=== PATIENT | female | born 1970 | race Caucasian/White ===

== ENCOUNTER 2017-06-20 10:39 | Observation (INO) | payer OTHER ==
[2017-06-20] MEDS ORDERED: Sodium Chloride 0.9% 1,000 ML IV ONE (11:15)
[2017-06-20 11:57] LABS: BASO % 1.3 % (0.0-2.0); LYMPH # 0.8 K/uL (1.0-4.3); LYMPH % 20.8 % (20.0-40.0); MEAN CELL VOLUME 49.2 fL (81.0-99.0); MEAN CORPUSCULAR HGB CONC 24.4 g/dL (33.0-37.0); MEAN PLATELET VOLUME 8.7 fL (7.2-11.7); MONO # 0.4 K/uL (0.0-0.8); NEUT # 2.6 K/uL (1.8-7.0); NEUT % 66.9 % (50.0-75.0); NRBC % 0.9 % (0.0-2.0); RBC 3.15 Mil/uL (3.80-5.20); RED CELL DISTRIBUTION WIDTH 22.2 % (11.5-14.5); WHITE BLOOD COUNT 3.9 K/uL (4.8-10.8)
--- NOTE | 2017-06-20 11:57 | C.PDOC ---
History Of Present Illness 46 year old female presents to the ED for evaluation after having abnormal lab results. Patient states she underwent a blood test at her PMD's office yesterday. She received the results today and was found to have low hemoglobin levels. Patient was advised by her PMD to present to the ED for further evaluation. Patient notes she usually experiences heavy menstrual periods, last menses is still current almost 7 days. Patient reports some generalized weakness and denies history of blood transfusions as well as any pain at this time. PMD: Dr. Remi Funez Time Seen by Provider: 06/20/17 11:01 Chief Complaint (Nursing): Abnormal Labs History Per: Patient History/Exam Limitations: no limitations Onset/Duration Of Symptoms: Days Current Symptoms Are (Timing): Still Present Additional History Per: Patient Past Medical History Reviewed: Historical Data, Nursing Documentation, Vital Signs Vital Signs: Last Vital Signs Temp 97.8 F 06/20/17 15:35 Pulse 108 H 06/20/17 15:35 Resp 18 06/20/17 15:35 BP 128/66 06/20/17 15:35 Pulse Ox 100 06/20/17 15:35 - Medical History PMH: No Chronic Diseases Surgical History: No Surg Hx Family History: States: Unknown Family Hx - Social History Hx Alcohol Use: No Hx Substance Use: No Review Of Systems Constitutional: Positive for: Weakness, Other (low hemoglobin levels ) Physical Exam - Physical Exam Appears: Non-toxic, No Acute Distress Skin: Warm, Dry, Pale Head: Atraumatic, Normacephalic Eye(s): bilateral: Normal Inspection Oral Mucosa: Moist Neck: Supple Chest: Symmetrical, No Deformity, No Tenderness Cardiovascular: Rhythm Regular, No Murmur Respiratory: Normal Breath Sounds, No Rales, No Rhonchi, No Wheezing Extremity: Normal ROM, Capillary Refill (less than 2 seconds ) Neurological/Psych: Oriented x3, Normal Speech, Normal Cognition ED Course And Treatment - Laboratory Results Result Diagrams: 06/20/17 11:49 06/20/17 11:49 O2 Sat by Pulse Oximetry: 100 (on RA) Pulse Ox Interpretation: Normal Medical Decision Making Medical Decision Making: Impression: 46 year old female for evaluation of low hemoglobin levels Plan: * bloodwork * urinalysis * ultrasound * IV Fluids * reassess and disposition Progress: Bloodwork and urinalysis ordered and reviewed. IV Fluids administered. 1240 Spoke with Jewel Owen for admission. Recommends ICU consult [address] Andrews (Data Coordinator clinical education assistant). Patient will receive 5 units for transfusion and will be admitted to telemetry for observation 1245 and 1340: Paged Dr. Perry (COFFEE SAMPLER clinical education assistant). Pending call back. [address] Perry, who states she will come down to see the patient in 10 minutes. Advised to order ultrasound. Patient is admitted and she is aware to follow up with results as consult Disposition - Disposition Disposition: HOSPITALIZED Disposition Time: 12:20 Condition: FAIR - POA Present On Arrival: None - Clinical Impression Clinical Impression: Severe anemia - PA / TECHNICAL SUPPORT ASSOCIATE / Resident Statement MD/DO has reviewed & agrees with the documentation as recorded. - Scribe Statement The provider has reviewed the documentation as recorded by the Scribe (Ana Owen) All medical record entries made by the Scribe were at my direction and personally dictated by me. I have reviewed the chart and agree that the record accurately reflects my personal performance of the history, physical exam, medical decision making, and the department course for this patient. I have also personally directed, reviewed, and agree with the discharge instructions and disposition. Decision To Admit - Pt Status Changed To: Hospital Disposition Of: Observation - . Bed Request Type: Telemetry Admitting Physician: Artem Owen Patient Diagnosis: Severe anemia
[2017-06-20 11:59] LABS: HCG,QUALITATIVE URINE NEGATIVE (NEGATIVE)
[2017-06-20 12:04] LABS: HEMOGLOBIN 3.8 g/dL (11.0-16.0); INR 1.3; PROTHROMBIN TIME 14.5 SECONDS (9.7-12.2)
[2017-06-20 12:09] LABS: SQUAMOUS EPITHIAL 1 /hpf (0-5); URINE BACTERIA RARE (<OCC); URINE BILIRUBIN NEGATIVE (NEGATIVE); URINE BLOOD 2+ (NEGATIVE); URINE CLARITY Clear (Clear); URINE GLUCOSE (UA) NORMAL (Normal); URINE LEUKOCYTE ESTERASE NEG Leu/uL (Negative); URINE PROTEIN NEGATIVE (NEGATIVE); URINE UROBILINOGEN NORMAL mg/dL (0.2-1.0)
[2017-06-20 12:12] LABS: URINE COLOR Straw (YELLOW)
[2017-06-20 12:30] LABS: ALB/GLOB RATIO 1.3 (1.0-2.1); ALBUMIN 3.7 g/dL (3.5-5.0); ALT/SGPT 22 U/L (9-52); AST/SGOT 17 U/L (14-36); BLOOD UREA NITROGEN 13 mg/dL (7-17); CALCIUM 9.3 mg/dl (8.6-10.4); GFR AFRICAN-AMERICAN > 60; GFR NON-AFRICAN AMERICAN > 60
[2017-06-20 12:49] LABS: IRON 10 ug/dL (37-170); TOTAL IRON BINDING CAPACITY 500 ug/dL (250-450)
[2017-06-20 12:50] LABS: % IRON SATURATION 2 (20-55)
--- NOTE | 2017-06-20 15:44 | CP.PCM.HP ---
Past Patient History - Past Social History Smoking Status: Never Smoked - PSYCHIATRIC Hx Substance Use: No - SURGICAL HISTORY Hx Surgeries: No Hx Vascular Surgery: Yes - ANESTHESIA Hx Anesthesia: No Meds Allergies/Adverse Reactions: Allergies Allergy/AdvReac Type Severity Reaction Status Date / Time No Known Allergies Allergy Unverified 06/20/17 10:49 Physical Exam - Constitutional Appears: Well - Head Exam Head Exam: ATRAUMATIC, NORMAL INSPECTION, NORMOCEPHALIC - Eye Exam Eye Exam: EOMI, Normal appearance, PERRL Pupil Exam: NORMAL ACCOMODATION, PERRL - ENT Exam ENT Exam: Mucous Membranes Moist, Normal Exam - Neck Exam Neck exam: Positive for: Normal Inspection - Respiratory Exam Respiratory Exam: Decreased Breath Sounds - Cardiovascular Exam Cardiovascular Exam: Tachycardia, +S1, +S2 - GI/Abdominal Exam GI & Abdominal Exam: Diminished Bowel Sounds, Soft - Rectal Exam Rectal Exam: Deferred Results - Vital Signs Recent Vital Signs: Last Vital Signs Temp 97.8 F 06/20/17 15:35 Pulse 108 H 06/20/17 15:35 Resp 18 06/20/17 15:35 BP 128/66 06/20/17 15:35 Pulse Ox 100 06/20/17 15:35 - Labs Result Diagrams: 06/20/17 11:49 06/20/17 11:49 Labs: Laboratory Results - last 24 hr 06/20/17 06/20/17 06/20/17 11:49 11:49 11:49 WBC 3.9 L RBC 3.15 L Hgb 3.8 L* Hct 15.5 L MCV 49.2 L MCH 12.0 L MCHC 24.4 L RDW 22.2 H Plt Count 166 MPV 8.7 Neut % (Auto) 66.9 Lymph % (Auto) 20.8 [place] % (Auto) 10.0 Eos % (Auto) 1.0 Baso % (Auto) 1.3 Neut # (Auto) 2.6 Lymph # (Auto) 0.8 L [place] # (Auto) 0.4 Eos # (Auto) 0.0 Baso # (Auto) 0.0 Differential Comment PT 14.5 H INR 1.3 APTT 29 Sodium Potassium Chloride Carbon Dioxide Anion Gap BUN Creatinine Est GFR ( Amer) Est GFR (Non-Af Amer) Random Glucose Calcium Iron TIBC % Saturation Total Bilirubin AST ALT Alkaline Phosphatase Total Protein Albumin Globulin Albumin/Globulin Ratio Urine Color Straw Urine Clarity Clear Urine pH 7.0 Ur Specific [place] 1.003 Urine Protein Negative Urine Glucose (UA) Normal Urine Ketones Negative Urine Blood 2+ H Urine Nitrate Negative Urine Bilirubin Negative Urine Urobilinogen Normal Ur Leukocyte Esterase Neg Urine WBC (Auto) 1 Urine RBC (Auto) 9 H Ur Squamous Epith Cells 1 Urine Bacteria Rare Urine HCG, Qual Negative Blood Type Antibody Screen 06/20/17 06/20/17 06/20/17 11:49 11:49 11:49 WBC RBC Hgb Hct MCV MCH MCHC RDW Plt Count MPV Neut % (Auto) Lymph % (Auto) [place] % (Auto) Eos % (Auto) Baso % (Auto) Neut # (Auto) Lymph # (Auto) [place] # (Auto) Eos # (Auto) Baso # (Auto) Differential Comment PT INR APTT Sodium 141 Potassium 3.7 Chloride 106 Carbon Dioxide 22 Anion Gap 16 BUN 13 Creatinine 0.5 L Est GFR ( Amer) > 60 Est GFR (Non-Af Amer) > 60 Random Glucose 112 H Calcium 9.3 Iron 10 L TIBC 500 H % Saturation 2 L Total Bilirubin 0.9 AST 17 ALT 22 Alkaline Phosphatase 55 Total Protein 6.6 Albumin 3.7 Globulin 2.9 Albumin/Globulin Ratio 1.3 Urine Color Urine Clarity Urine pH Ur Specific [place] Urine Protein Urine Glucose (UA) Urine Ketones Urine Blood Urine Nitrate Urine Bilirubin Urine Urobilinogen Ur Leukocyte Esterase Urine WBC (Auto) Urine RBC (Auto) Ur Squamous Epith Cells Urine Bacteria Urine HCG, Qual Blood Type O POSITIVE Antibody Screen Negative
--- NOTE | 2017-06-20 16:55 | CP.PCM.CON ---
History of Present Illness - History of Present Illness History of Present Illness: Pt is a 46yo LMP 06/13/17 who was sent to ED for further evaluation by pcp due to severe anemia. Pt c/o heavy menses x4mos. +7day duration with increased severity of flow on days 3-5. She denies passage of large clots or dysmennorhea. She states on days of heavy bleeding it is a steady flow. 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 ObHx: CD x2; EAB 1s trim x2 Review of Systems - Constitutional Constitutional: Malaise - Cardiovascular Cardiovascular: absent: Chest Pain, Chest Pain with Activity, Dyspnea - Respiratory Respiratory: Dyspnea on Exertion - Gastrointestinal Gastrointestinal: absent: Abdominal Pain, Cramping - Reproductive: Female Reproductive:Female: Abnormal Vaginal Bleeding. absent: Cycle Variable, Dysmenorrhea, Vaginal Discharge - Menstruation Menstruation: Heavy Menses Past Patient History - Past Medical History & Family History Past Medical History?: No - Past Social History Smoking Status: Never Smoked Alcohol: None Drugs: Denies - CARDIAC Hx Cardiac Disorders: No - PULMONARY Hx Respiratory Disorders: No - NEUROLOGICAL Hx Neurological Disorder: No - HEENT Hx HEENT Problems: No - RENAL Hx Chronic Kidney Disease: No - ENDOCRINE/METABOLIC Hx Endocrine Disorders: No - HEMATOLOGICAL/ONCOLOGICAL Hx Blood Disorders: No - GASTROINTESTINAL Hx Gastrointestinal Disorders: No - GENITOURINARY/GYNECOLOGICAL Hx Genitourinary Disorders: No - PSYCHIATRIC Hx Psychophysiologic Disorder: No Hx Substance Use: No - SURGICAL HISTORY Hx Surgeries: Yes (see ob hx) Hx Vascular Surgery: Yes - ANESTHESIA Hx Anesthesia: No Meds Allergies/Adverse Reactions: Allergies Allergy/AdvReac Type Severity Reaction Status Date / Time No Known Allergies Allergy Unverified 06/20/17 10:49 - Medications Medications: Current Medications Ferric Sodium Gluconate Complex (Ferrlecit) 125 mg IVPB ONCE ONE Stop: 06/20/17 17:31 Last Admin: 06/20/17 16:53 Dose: 125 mg Physical Exam - Constitutional Appears: Well, No Acute Distress - Head Exam Head Exam: ATRAUMATIC, NORMOCEPHALIC - Respiratory Exam Respiratory Exam: NORMAL BREATHING PATTERN - Cardiovascular Exam Cardiovascular Exam: REGULAR RHYTHM - GI/Abdominal Exam GI & Abdominal Exam: Normal Bowel Sounds, Soft. absent: Distended, Firm, Guarding, Organomegaly, Rebound, Rigid, Tenderness - Rectal Exam Rectal Exam: Deferred - Exam External exam: NORMAL EXTERNAL EXAM Speculum exam: Vaginal Bleeding (no active bleeding per cerv os; +hemolyzed blood in vault, small amoung; no cerv or vaginal lesions). absent: Cervical Discharge, Laceration, Vaginal Discharge Bimanual exam: Uterine Enlargement (15wk size uterus). absent: Adenexal Mass, Cervical Motion Tendernes, Uterine Tenderness - Extremities Exam Extremities exam: Positive for: normal inspection. Negative for: pedal edema - Neurological Exam Neurological exam: Oriented x3 - Psychiatric Exam Psychiatric exam: Normal Affect - Skin Skin Exam: Pallor Results - Vital Signs Recent Vital Signs: Last Vital Signs Temp 97.8 F 06/20/17 15:35 Pulse 108 H 06/20/17 15:35 Resp 18 06/20/17 15:35 BP 128/66 06/20/17 15:35 Pulse Ox 100 06/20/17 16:27 - Labs Result Diagrams: 06/20/17 11:49 06/20/17 11:49 Labs: Laboratory Results - last 24 hr 06/20/17 06/20/17 06/20/17 11:49 11:49 11:49 WBC 3.9 L RBC 3.15 L Hgb 3.8 L* Hct 15.5 L MCV 49.2 L MCH 12.0 L MCHC 24.4 L RDW 22.2 H Plt Count 166 MPV 8.7 Neut % (Auto) 66.9 Lymph % (Auto) 20.8 [place] % (Auto) 10.0 Eos % (Auto) 1.0 Baso % (Auto) 1.3 Neut # (Auto) 2.6 Lymph # (Auto) 0.8 L [place] # (Auto) 0.4 Eos # (Auto) 0.0 Baso # (Auto) 0.0 Differential Comment Smear Path Review PT 14.5 H INR 1.3 APTT 29 Sodium Potassium Chloride Carbon Dioxide Anion Gap BUN Creatinine Est GFR ( Amer) Est GFR (Non-Af Amer) Random Glucose Calcium Iron TIBC % Saturation Total Bilirubin AST ALT Alkaline Phosphatase Total Protein Albumin Globulin Albumin/Globulin Ratio Urine Color Straw Urine Clarity Clear Urine pH 7.0 Ur Specific [place] 1.003 Urine Protein Negative Urine Glucose (UA) Normal Urine Ketones Negative Urine Blood 2+ H Urine Nitrate Negative Urine Bilirubin Negative Urine Urobilinogen Normal Ur Leukocyte Esterase Neg Urine WBC (Auto) 1 Urine RBC (Auto) 9 H Ur Squamous Epith Cells 1 Urine Bacteria Rare Urine HCG, Qual Negative Blood Type Antibody Screen 06/20/17 06/20/17 06/20/17 11:49 11:49 11:49 WBC RBC Hgb Hct MCV MCH MCHC RDW Plt Count MPV Neut % (Auto) Lymph % (Auto) [place] % (Auto) Eos % (Auto) Baso % (Auto) Neut # (Auto) Lymph # (Auto) [place] # (Auto) Eos # (Auto) Baso # (Auto) Differential Comment Smear Path Review PT INR APTT Sodium 141 Potassium 3.7 Chloride 106 Carbon Dioxide 22 Anion Gap 16 BUN 13 Creatinine 0.5 L Est GFR ( Amer) > 60 Est GFR (Non-Af Amer) > 60 Random Glucose 112 H Calcium 9.3 Iron 10 L TIBC 500 H % Saturation 2 L Total Bilirubin 0.9 AST 17 ALT 22 Alkaline Phosphatase 55 Total Protein 6.6 Albumin 3.7 Globulin 2.9 Albumin/Globulin Ratio 1.3 Urine Color Urine Clarity Urine pH Ur Specific [place] Urine Protein Urine Glucose (UA) Urine Ketones Urine Blood Urine Nitrate Urine Bilirubin Urine Urobilinogen Ur Leukocyte Esterase Urine WBC (Auto) Urine RBC (Auto) Ur Squamous Epith Cells Urine Bacteria Urine HCG, Qual Blood Type O POSITIVE Antibody Screen Negative - Imaging and Cardiology pelvic us Status: Report reviewed by me (US: uterus 15.9x 8.7x9.7; fundal fibroid w/ central necrosis [id number]; 2nd fibroid 50x55x 33mm. ) Assessment & Plan - Assessment and Plan (Free Text) Assessment: Impression: Menorrhagia Leomyoma Secondary Anemia Plan: P Pt admitted to medicine service Blood transfusion Recommend heme consult Consider provera
--- NOTE | 2017-06-20 17:01 | US ---
HISTORY: heavy vaginal bleeding COMPARISON: None available. TECHNIQUE: Transabdominal and transvaginal FINDINGS: UTERUS: Measures 15.9 x 8.7 x 9.7 cm. There to large discrete uterine fibroids identified. There is a fundal fibroid measuring 5.1 x 5.6 x 6.9 cm. There is some central necrosis within this fibroid. There is a 2nd fibroid in the mid to upper uterus measuring 5.0 x 5.0 x 3.3 cm. ENDOMETRIUM: Poorly visualized due to effacement by large fibroids. CERVIX: No cervical abnormality identified. RIGHT OVARY: Measures 4.6 x 2.7 x 3.9 cm. No solid mass. Normal flow. LEFT OVARY: Measures 5.2 x 2.8 x 4.2 cm. No solid mass. Normal flow. Minimally complicated cyst, 1.9 x 2.8 x 3.1 cm. FREE FLUID: Small amount of free fluid in both adnexae. OTHER FINDINGS: None. IMPRESSION: Two large uterine fibroids. Endometrium poorly visualized. No additional abnormality.
[2017-06-20] MEDS ORDERED: Ferric Sodium Gluconat Complex 62.5 mg/5 ml Vial IVPB ONE (17:30)
[2017-06-20 19:32] LABS: BASO # 0.1 K/uL (0.0-0.2); BASO % 1.1 % (0.0-2.0); EOS # 0.1 K/uL (0.0-0.7); EOS % 2.1 % (0.0-4.0); LYMPH # 1.3 K/uL (1.0-4.3); LYMPH % 29.7 % (20.0-40.0); MEAN CELL VOLUME 55.2 fL (81.0-99.0); MEAN CORPUSCULAR HEMOGLOBIN 15.1 pg (27.0-31.0); MEAN CORPUSCULAR HGB CONC 27.4 g/dL (33.0-37.0); MEAN PLATELET VOLUME 9.3 fL (7.2-11.7); MONO # 0.4 K/uL (0.0-0.8); MONO % 9.2 % (0.0-10.0); NEUT # 2.6 K/uL (1.8-7.0); NEUT % 57.9 % (50.0-75.0); NRBC % 0.7 % (0.0-2.0); RBC 3.32 Mil/uL (3.80-5.20); RED CELL DISTRIBUTION WIDTH 31.5 % (11.5-14.5); WHITE BLOOD COUNT 4.4 K/uL (4.8-10.8)
[2017-06-20 19:47] LABS: ALB/GLOB RATIO 1.2 (1.0-2.1); ALBUMIN 3.1 g/dL (3.5-5.0); ALT/SGPT 22 U/L (9-52); AST/SGOT 12 U/L (14-36); BLOOD UREA NITROGEN 8 mg/dL (7-17); CALCIUM 8.8 mg/dl (8.6-10.4); GFR AFRICAN-AMERICAN > 60; GFR NON-AFRICAN AMERICAN > 60
[2017-06-21] MEDS: Ferric Sodium Gluconat Complex 62.5 mg/5 ml Vial IVPB SCH (10:34)
--- NOTE | 2017-06-21 19:37 | CP.PCM.CON ---
History of Present Illness - History of Present Illness History of Present Illness: 46 year old female with menorrhagia, presenting from her PMD with severe anemia. The patient notes to progressive fatigue and dyspnea with exertion. She has been having menorrhagia for about 5-6 months time. She has not see a DATA COLLECTOR. In the ER she was found to have a hgb of 3.8. She is currently s/p 5U PRBC and notes to feeling better. Past medical history: Menorrhagia Past surgical history: None Family history: Denies hematologic and oncologic problems Social history: Denies tobacco, alcohol, and illicit drug use. Allergies: NKA Review of systems: All remaining review of systems including HEENT, cardiovascular, respiratory, gastrointestinal, genitourinary, musculoskeletal, dermatologic, neurologic, and psychiatric are negative unless mentioned in the HPI. Past Patient History - Past Medical History & Family History Past Medical History?: No - Past Social History Smoking Status: Never Smoked Alcohol: None Drugs: Denies - CARDIAC Hx Cardiac Disorders: No - PULMONARY Hx Respiratory Disorders: No - NEUROLOGICAL Hx Neurological Disorder: No - HEENT Hx HEENT Problems: No - RENAL Hx Chronic Kidney Disease: No - ENDOCRINE/METABOLIC Hx Endocrine Disorders: No - HEMATOLOGICAL/ONCOLOGICAL Hx Blood Disorders: No - GASTROINTESTINAL Hx Gastrointestinal Disorders: No - GENITOURINARY/GYNECOLOGICAL Hx Genitourinary Disorders: No - PSYCHIATRIC Hx Psychophysiologic Disorder: No Hx Substance Use: No - SURGICAL HISTORY Hx Surgeries: Yes (see ob hx) Hx Vascular Surgery: Yes - ANESTHESIA Hx Anesthesia: No Meds Allergies/Adverse Reactions: Allergies Allergy/AdvReac Type Severity Reaction Status Date / Time No Known Allergies Allergy Unverified 06/20/17 10:49 - Medications Medications: Current Medications Ferric Sodium Gluconate Complex (Ferrlecit) 125 mg IVPB DAILY DC Stop: 06/25/17 10:01 Last Admin: 06/21/17 10:34 Dose: Not Given Physical Exam - Head Exam Head Exam: ATRAUMATIC - Eye Exam Eye Exam: Normal appearance - ENT Exam ENT Exam: Mucous Membranes Dry - Respiratory Exam Respiratory Exam: NORMAL BREATHING PATTERN - Cardiovascular Exam Cardiovascular Exam: +S1, +S2 - GI/Abdominal Exam GI & Abdominal Exam: Normal Bowel Sounds - Extremities Exam Extremities exam: Positive for: normal inspection - Neurological Exam Neurological exam: Oriented x3 - Psychiatric Exam Psychiatric exam: Normal Affect, Normal Mood - Skin Skin Exam: Warm Results - Vital Signs Recent Vital Signs: Last Vital Signs Temp 98.6 F 06/21/17 16:00 Pulse 82 06/21/17 16:00 Resp 20 06/21/17 16:00 BP 134/85 06/21/17 16:00 Pulse Ox 97 06/21/17 16:00 - Labs Result Diagrams: 06/21/17 19:51 06/21/17 19:51 Labs: Laboratory Results - last 24 hr 06/20/17 06/20/17 06/20/17 11:49 19:26 19:26 WBC 4.4 L RBC 3.32 L Hgb 5.0 L* Hct 18.3 L MCV 55.2 L D MCH 15.1 L MCHC 27.4 L RDW 31.5 H Plt Count 182 MPV 9.3 Neut % (Auto) 57.9 Lymph % (Auto) 29.7 [place] % (Auto) 9.2 Eos % (Auto) 2.1 Baso % (Auto) 1.1 Neut # (Auto) 2.6 Lymph # (Auto) 1.3 [place] # (Auto) 0.4 Eos # (Auto) 0.1 Baso # (Auto) 0.1 Differential Comment Sodium 140 Potassium 3.7 Chloride 108 H Carbon Dioxide 22 Anion Gap 13 BUN 8 Creatinine 0.5 L Est GFR ( Amer) > 60 Est GFR (Non-Af Amer) > 60 Random Glucose 91 Calcium 8.8 Total Bilirubin 1.1 AST 12 L D ALT 22 Alkaline Phosphatase 50 Total Protein 5.8 L Albumin 3.1 L Globulin 2.6 Albumin/Globulin Ratio 1.2 Blood Type O POSITIVE Antibody Screen Negative Assessment & Plan (1) Severe anemia Assessment and Plan: chronic menorrhagia will send retic count, b12, folate, ferritin; likely iron deficiency anemia s/p PRBC transfusion on IV iron DATA COLLECTOR f/u Status: Acute (2) Thrombocytopenia Assessment and Plan: likely dilutional from PRBC transfusion Thank you for this interesting consult. Status: Acute
[2017-06-21 20:07] LABS: ALB/GLOB RATIO 1.2 (1.0-2.1); ALBUMIN 3.5 g/dL (3.5-5.0); ALT/SGPT 25 U/L (9-52); AST/SGOT 21 U/L (14-36); BLOOD UREA NITROGEN 12 mg/dL (7-17); CALCIUM 8.9 mg/dl (8.6-10.4); GFR AFRICAN-AMERICAN > 60; GFR NON-AFRICAN AMERICAN > 60
[2017-06-21 20:30] LABS: BASO # 0.1 K/uL (0.0-0.2); BASO % 1.5 % (0.0-2.0); EOS # 0.1 K/uL (0.0-0.7); EOS % 1.5 % (0.0-4.0); HEMOGLOBIN 10.9 g/dL (11.0-16.0); LYMPH # 1.6 K/uL (1.0-4.3); LYMPH % 23.5 % (20.0-40.0); MEAN CORPUSCULAR HEMOGLOBIN 22.5 pg (27.0-31.0); MEAN PLATELET VOLUME 9.4 fL (7.2-11.7); MONO # 0.6 K/uL (0.0-0.8); MONO % 8.6 % (0.0-10.0); NEUT # 4.5 K/uL (1.8-7.0); NEUT % 64.9 % (50.0-75.0); RBC 4.85 Mil/uL (3.80-5.20); RED CELL DISTRIBUTION WIDTH 35.9 % (11.5-14.5)
--- NOTE | 2017-06-21 20:31 | CP.PCM.PN ---
Subjective - Date & Time of Evaluation Date of Evaluation: 06/21/17 Time of Evaluation: 09:40 - Subjective Subjective: clinically same Objective - Vital Signs/Intake and Output Vital Signs (last 24 hours): Temp Pulse Resp BP Pulse Ox 98.6 F 82 20 134/85 97 06/21/17 16:00 06/21/17 16:00 06/21/17 16:00 06/21/17 16:00 06/21/17 16:00 Intake and Output: 06/21/17 06/22/17 18:59 06:59 Intake Total 1315 Balance 1315 - Medications Medications: Current Medications Ferric Sodium Gluconate Complex (Ferrlecit) 125 mg IVPB DAILY DC Stop: 06/25/17 10:01 Last Admin: 06/21/17 10:34 Dose: Not Given - Labs Labs: 06/20/17 19:26 06/21/17 19:51 PT 14.5 SECONDS (9.7-12.2) H 06/20/17 11:49 INR 1.3 06/20/17 11:49 APTT 29 SECONDS (21-34) 06/20/17 11:49 - Constitutional Appears: Well - Head Exam Head Exam: ATRAUMATIC, NORMAL INSPECTION, NORMOCEPHALIC - Eye Exam Eye Exam: EOMI, Normal appearance, PERRL Pupil Exam: NORMAL ACCOMODATION, PERRL - ENT Exam ENT Exam: Mucous Membranes Moist, Normal Exam - Neck Exam Neck Exam: Full ROM, Normal Inspection. absent: Lymphadenopathy - Respiratory Exam Respiratory Exam: Decreased Breath Sounds - Cardiovascular Exam Cardiovascular Exam: REGULAR RHYTHM, +S1, +S2 - GI/Abdominal Exam GI & Abdominal Exam: Soft, Hypoactive Bowel Sounds - Rectal Exam Rectal Exam: Deferred
[2017-06-21 20:34] LABS: MEAN CELL VOLUME 68.1 fL (81.0-99.0)
[2017-06-22 07:35] LABS: BASO # 0.1 K/uL (0.0-0.2); BASO % 0.8 % (0.0-2.0); EOS # 0.1 K/uL (0.0-0.7); EOS % 1.7 % (0.0-4.0); HEMOGLOBIN 10.9 g/dL (11.0-16.0); LYMPH # 1.3 K/uL (1.0-4.3); LYMPH % 20.2 % (20.0-40.0); MEAN CELL VOLUME 69.2 fL (81.0-99.0); MEAN CORPUSCULAR HEMOGLOBIN 22.1 pg (27.0-31.0); MEAN PLATELET VOLUME 9.1 fL (7.2-11.7); MONO # 0.6 K/uL (0.0-0.8); NEUT # 4.6 K/uL (1.8-7.0); NEUT % 68.3 % (50.0-75.0); NRBC % 0.8 % (0.0-2.0); RBC 4.93 Mil/uL (3.80-5.20); RED CELL DISTRIBUTION WIDTH 35.2 % (11.5-14.5); WHITE BLOOD COUNT 6.7 K/uL (4.8-10.8)
[2017-06-22 08:10] VITALS: BP 121/80; RESP 18; TEMP 98.3; O2SAT 100
[2017-06-22 08:14] VITALS: PULSE 74
[2017-06-22] MEDS: Ferric Sodium Gluconat Complex 62.5 mg/5 ml Vial IVPB SCH (09:01)
[2017-06-22 11:51] LABS: FERRITIN 33.3 ng/mL
[2017-06-22 12:23] LABS: FOLATE > 20.0 ng/mL
--- NOTE | 2017-06-22 14:06 | CP.PCM.DIS ---
Provider - Provider Date of Admission: 06/20/17 12:19 Attending physician: Hitesh Owen MD Time Spent in preparation of Discharge (in minutes): 31 Hospital Course - Lab Results Lab Results: Most Recent Lab Values WBC 6.7 K/uL (4.8-10.8) 06/22/17 07: RBC 4.93 Mil/uL (3.80-5.20) 06/22/17 07: Hgb 10.9 g/dL (11.0-16.0) L 06/22/17 07: Hct 34.1 % (34.0-47.0) 06/22/17 07: MCV 69.2 fL (81.0-99.0) L 06/22/17 07: MCH 22.1 pg (27.0-31.0) L 06/22/17 07: MCHC 32.0 g/dL (33.0-37.0) L 06/22/17 07: RDW 35.2 % (11.5-14.5) H 06/22/17 07: Plt Count 136 K/uL (130-400) 06/22/17 07: MPV 9.1 fL (7.2-11.7) 06/22/17 07: Neut % (Auto) 68.3 % (50.0-75.0) 06/22/17 07: Lymph % (Auto) 20.2 % (20.0-40.0) 06/22/17 07: [place] % (Auto) 9.0 % (0.0-10.0) 06/22/17 07: Eos % (Auto) 1.7 % (0.0-4.0) 06/22/17 07: Baso % (Auto) 0.8 % (0.0-2.0) 06/22/17: Neut # (Auto) 4.6 K/uL (1.8-7.0) 06/22/17 07:27 Lymph # (Auto) 1.3 K/uL (1.0-4.3) 06/22/17 07: [place] # (Auto) 0.6 K/uL (0.0-0.8) 06/22/17 07:27 Eos # (Auto) 0.1 K/uL (0.0-0.7) 06/22/17 07:27 Baso # (Auto) 0.1 K/uL (0.0-0.2) 06/22/17 07:27 Differential Comment 06/22/17 07:27 Smear Path Review 06/20/17 11:49 Retic Count 2.7 % (0.5-1.5) H 06/22/17 07:27 PT 14.5 SECONDS (9.7-12.2) H 06/20/17 11:49 INR 1.3 06/20/17 11:49 APTT 29 SECONDS (21-34) 06/20/17 11:49 Sodium 141 mmol/L (132-148) 06/21/17 19:51 Potassium 3.7 mmol/L (3.6-5.2) 06/21/17 19:51 Chloride 108 mmol/L (98-107) H 06/21/17 19:51 Carbon Dioxide 20 mmol/L (22-30) L 06/21/17 19:51 Anion Gap 18 (10-20) 06/21/17 19:51 BUN 12 mg/dL (7-17) 06/21/17 19:51 Creatinine 0.5 mg/dL (0.7-1.2) L 06/21/17 19:51 Est GFR ( Amer) > 60 06/21/17 19:51 Est GFR (Non-Af Amer) > 60 06/21/17 19:51 Random Glucose 102 mg/dL (65-105) 06/21/17 19:51 Calcium 8.9 mg/dl (8.6-10.4) 06/21/17 19:51 Iron 10 ug/dL (37-170) L 06/20/17 11:49 TIBC 500 ug/dL (250-450) H 06/20/17 11:49 % Saturation 2 (20-55) L 06/20/17 11:49 Ferritin 33.3 ng/mL 06/22/17 07:27 Total Bilirubin 1.3 mg/dL (0.2-1.3) 06/21/17 19:51 AST 21 U/L (14-36) 06/21/17 19:51 ALT 25 U/L (9-52) 06/21/17 19:51 Alkaline Phosphatase 67 U/L (38-126) 06/21/17 19:51 Total Protein 6.3 g/dL (6.3-8.3) 06/21/17 19:51 Albumin 3.5 g/dL (3.5-5.0) 06/21/17 19:51 Globulin 2.8 gm/dL (2.2-3.9) 06/21/17 19:51 Albumin/Globulin Ratio 1.2 (1.0-2.1) 06/21/17 19:51 Vitamin B12 299 pg/mL (239-931) 06/22/17 07:27 Folate > 20.0 ng/mL 06/22/17 07:27 Urine Color Straw (YELLOW) 06/20/17 11:49 Urine Clarity Clear (Clear) 06/20/17 11:49 Urine pH 7.0 (5.0-8.0) 06/20/17 11:49 Ur Specific [place] 1.003 (1.003-1.030) 06/20/17 11:49 Urine Protein Negative mg/dL (NEGATIVE) 06/20/17 11:49 Urine Glucose (UA) Normal mg/dL (Normal) 06/20/17 11:49 Urine Ketones Negative mg/dL (NEGATIVE) 06/20/17 11:49 Urine Blood 2+ (NEGATIVE) H 06/20/17 11:49 Urine Nitrate Negative (NEGATIVE) 06/20/17 11:49 Urine Bilirubin Negative (NEGATIVE) 06/20/17 11:49 Urine Urobilinogen Normal mg/dL (0.2-1.0) 06/20/17 11:49 Ur Leukocyte Esterase Neg [place]/uL (Negative) 06/20/17 11:49 Urine WBC (Auto) 1 /hpf (0-5) 06/20/17 11:49 Urine RBC (Auto) 9 /hpf (0-3) H 06/20/17 11:49 Ur Squamous Epith Cells 1 /hpf (0-5) 06/20/17 11:49 Urine Bacteria Rare (<OCC) 06/20/17 11:49 Urine HCG, Qual Negative (NEGATIVE) 06/20/17 11:49 Blood Type O POSITIVE 06/20/17 11:49 Antibody Screen Negative 06/20/17 11:49 Discharge Exam - Head Exam Head Exam: ATRAUMATIC - Eye Exam Eye Exam: EOMI - ENT Exam ENT Exam: Mucous Membranes Moist - Neck Exam Neck exam: Full Rom - Respiratory Exam Respiratory Exam: Decreased Breath Sounds - Cardiovascular Exam Cardiovascular Exam: REGULAR RHYTHM, +S1, +S2 - GI/Abdominal Exam GI & Abdominal Exam: Bruit, Diminished Bowel Sounds, Soft - Rectal Exam Rectal Exam: Deferred Discharge Plan - Follow Up Plan Condition: FAIR Disposition: HOME/ ROUTINE
== END 2017-06-22 14:55 | disposition home or self-care (01) ==
LOC: C.ER 10:39 → C.9E 12:19 → C.6T 17:00
PROVIDERS: ADMIT Internal Medicine Nephrology; ATTEND Internal Medicine Nephrology
DX: D50.9 Iron deficiency anemia, unspecified (principal); N92.0 Excessive and frequent menstruation with regular cycle; D69.6 Thrombocytopenia, unspecified; D25.9 Leiomyoma of uterus, unspecified; D69.59 Other secondary thrombocytopenia
CPT/HCPCS: 36415; 36430; 76830; 76856; 80053; 81001; 82607; 82728; 82746; 83540; 83550; 84703; 85025; 85044; 85610; 85730; 86850; 86900; 86920; 96361; 96365; 96366; 99285; G0378; J2916; J7040; P9051

== ENCOUNTER 2017-08-28 10:17 | Inpatient (IN) | payer OTHER ==
[2017-08-28] MEDS ORDERED: Midazolam 2 MG/2 ML VIAL ONE (11:55)
[2017-08-28] MEDS ORDERED: Propofol 10 mg/ml Inj (20 ML) ONE (11:56)
[2017-08-28] MEDS ORDERED: Succinylcholine Chloride 20 mg/ml Syr (5 ml) IV ONE (11:57)
[2017-08-28] MEDS ORDERED: Rocuronium 10 mg/ml (5 ml) ONE ×2 (11:57→14:06)
[2017-08-28] MEDS ORDERED: ePHEDrine 50 mg/ml Inj ONE (11:57)
[2017-08-28] MEDS ORDERED: Sodium Chloride 0.9% 0 ML IV ONE (12:19)
[2017-08-28] MEDS ORDERED: Sodium Chloride 0.9% 20 ML IV ONE (12:20)
[2017-08-28] MEDS ORDERED: Lidocaine/Epinephrine 1% 1:100000 10 ML IJ ONE (12:22)
[2017-08-28] MEDS ORDERED: Bupivacaine 0.25% 20 ML INJ IJ ONE (12:22)
[2017-08-28] MEDS: ceFAZolin IV 2 gm in Dextrose 2 GM/50 ML BAG IVPB ONE ×2 (12:25→12:35)
[2017-08-28] MEDS ORDERED: Vasopressin 20 Units/ml Inj ONE (12:56)
[2017-08-28] MEDS ORDERED: Morphine 4 MG/ML VIAL ONE (12:58)
[2017-08-28] MEDS ORDERED: Neostigmine Methylsulfate 3mg/3ml Syringe IV ONE (14:33)
[2017-08-28] MEDS ORDERED: Oxycodone/Acetaminophen 5/325 mg Tab PO PRN ×3 (14:41→15:03)
[2017-08-28] MEDS ORDERED: HYDROmorphone 0.5 mg/0.5 ml ISec IVP PRN (14:52)
--- NOTE | 2017-08-28 14:58 | PCM.OP ---
Operative Report - Operative Report Date of Surgery/Procedure: 08/28/17 Time of Surgery/Procedure: 14:56 Surgeon: Aretha Carlin MD Mine Car Repairer: Jeanne Mckinney MD, Jana BHAGAT Anesthesia/Sedation: Gen with Et tube Pre-Operative Diagnosis: Symptomatic fibroid uterus. Chronic pelvic pain. Abnormal uterine bleeding. chronic anemia Post-Operative Diagnosis: Symptomatic fibroid uterus. Chronic pelvic pain. Abnormal uterine bleeding. chronic anemia. Endometriosis Stage III Indication for Surgery: Worsening pelvic pain, symptomatic fibroid uterus and chronic anemia. failed conservative management. Operative Findings: Bulky massive enlarged fibroid uterus approx 18 weeks size, extensive intraabdominal intrapelvic adhessions, Endometriosis deep difused, endometrioma on left ovary, multiple myomas intramural and intracavitary. normal bladder and ureters anatomy as per cystoscopy at the end of the procedure. Procedure/Operation Description: Total robotic hysterectomy LSO, right salpingectomy >250g. uterosacroligament suspenssion. Excision of endometrioma and endometriosis. Extensive lysis of adhesions and enterolysis. Diagnostic cystoscpy. DESCRIPTION OF OPERATION: . This is a 46 years old female with symptomatic a large fibroid uterus, chronic pelvic pain and chronic anemia and epical uterine prolapse. The patient completed an extensive preoperative workup, which included an ultrasound, as well as a Pap smear, chemistry and hematology studies. The patient reported these symptoms and problems as debilitating, and adversely affecting her quality of life. Following a period of failed conservative management, and patient decision was made to proceed with a more invasive approach to address the above noted problems. A decision was finally made to proceed with a total robotic assisted hysterectomy, bilateral salpingectomy, and vaginal vault suspension. A detailed description of this robotic procedure was given to the patient, all indications, risks, benefits and alternative treatments were reviewed, and printed material was also given to the patient regarding robotic surgery. The patient elected to proceed with the proposed procedure fully understanding all the risks and benefits associated with this proposed robotic procedure. After proper consent was obtained from the patient was taken to the operating room, proper patient identification was completed. She was placed in dorsal lithotomy position; general anesthesia was induced without difficulty. Her legs were placed in adjustable Andrey stirrups. Careful attention was placed to avoid hyper-flexion or hyper-rotation of the lower extremities at the hip and the knee joints. She was prepped and draped appropriately for robotic assisted hysterectomy and colposuspension. Mena catheter was inserted under sterile conditions. A weighted speculum was placed in the vagina, anterior lip of cervix was grasped with a tenaculum, the cervix was mildly dilated and a V-care uterine manipulator was inserted through the cervix and secured. The weighted speculum and tenaculum were removed from the patient's vagina and attention was turned to the patient's abdomen. Local anesthetic solutions of 0.25% Marcaine with epinephrine were utilized to infiltrate the skin prior to all abdominal skin incisions. A total of 15 mL of 0.25% Marcaine was utilized throughout the procedure. While tenting the abdominal wall up, a Veress needle was inserted at a 45 degree angle. With CO2 insufflation, there was a drop in intraperitoneal pressure confirming correct placement. Insufflation was carried out to approximately 3 liters. A blunt robotic trocar and sleeve was introduced through the camera port in the midline, approximately 5 cm above the umbilicus. Then, using a 30-degree lens robotic scope, initial survey of the patient's abdomen revealed a massively enlarged, approximately 18 weeks size fibroid uterus, extensive intra-abdominal and intrapelvic peritoneal and bowel adhesions, endometriosis lesions as well as an endometrioma in the LEFT adnexa, and finally severely adherent to and ovaries bilaterally to the uterus, pelvic sidewall and other pelvic viscera. Under direct visualization, 3 additional robotic ports were utilized for this procedure. The first one, approximately 7 cm superior to the superior iliac crest on the RIGHT, a second port was approximately 7 cm superior to the superior iliac crest on the LEFT, and a third one was approximately 8 cm RIGHT lateral of the camera port in the midline. All robotic ports were approximately 8 mm in length. An bioinformatics assistant port was inserted approximately 8 cm LEFT lateral of the camera port, and the versastep trocar and sleeve were introduced in the recommended fashion. A Veress and sheath were first introduced through a 1 cm incision, the Veress was removed and a trocar was introduced through the sheath and secured. Again, excellent visualization was noted confirming intraperitoneal placement. The placement of the trocars was all accomplished under careful and meticulous placement under direct visualization. Following the placement of all trocars, the [employer] Neyda robotic system was docked in a parallel side docking method after the patient was placed in moderate Trendelenburg position and small bowel had been swept away out of the pelvis. The ureter was positively identified. The following instruments were utilized for this procedure: the bipolar cautery device, a monopolar eugene and finally a ProGrasp. prior to the start of the hysterectomy, extensive enterolysis as well as lysis of adhesions was necessary in order to access the adnexa and complete the hysterectomy. Sharp and blunt dissection was utilized to lysed the dense peritonealadhesions as well as bowel adhesions. excision of endometriosis and an endometrioma in the LEFT adnexa was achieved utilizing sharp and blunt dissection with excellent hemostasis. endometrioma was enucleated labeled and sent to pathology. Prior to the start of the hysterectomy, both ureters were visualized along the full course, peristalsis bilaterally. Both fallopian tubes were transected along the mesosalpinx for later extraction along with the uterus. On the patient's right side, the and the round ligaments were identified cauterized and transected, the broad ligament was divided all the way down to the utero cervical junction bladder flap was then created by transecting the visceroperitoneum over the bladder reflection. oon the LEFT side due to extensive adhesions and extractive appearance of the LEFT adnexa, decision was made to proceed with LEFT salpingo-oophorectomy. In a similar fashion, the left round ligament, IP ligament and broad ligament were cauterized sealed and transected, taken down to the level of the cervical uterine junction. Uterine vessels on both sides were sealed and transected. The Uterosacral ligaments were sealed and transected. The monopolar eugene and PK were utilized to complete the colpotomy incision around the care vaginal ring. Excellent hemostasis was noted. The uterus, cervix, LEFT ovary as well as endometrioma and pelvic washing and fallopian tubes were delivered transvaginally through the colpotomy incision and sent to pathology for permanent analysis. The colpotomy incision was closed with 2-0 v LOC in a continuous fashion with excellent hemostasis. The vaginal vault suspension was achieved by suspending the vaginal cuff to the base of the uterosacral ligaments bilaterally. For uterosacral ligament suspension portion of the procedure, the ureters were once again identified to avoid possible compromise or kinking while suspending the vaginal vault. A 2-0 permanent suture material (Alexander-Dhruv) was utilized to suspend the uterosacral ligaments from the base to the vaginal vault cuff incision including both anterior and posterior aspect of the colpotomy incision. Utilizing a 3-0 Monocryl suture, the peritoneum over the colpotomy incision and uterosacral ligaments was re-approximated in a continuous fashion. The pelvis and abdomen were irrigated copiously and cleared of all clots and debris. FloSeal as well as Interceed was applied over the incision sites. Excellent hemostasis was once again noted. All robotic and laparoscopic instruments removed under direct visualization. The robotic arms were undocked , and a da Neyda robotic system was wheeled away from the patient's bedside. Both bioinformatics assistant and camera ports were closed at the fascial layer utilizing a 0 Vicryl suture material in interrupted fashion. Pneumoperitoneum was reduced and all skin incisions were closed utilizing 4-0 Monocryl in a subcutaneous fashion. Dermabond was applied to all incisions. At the conclusion of this procedure, a diagnostic cystoscopy was completed. The Mena catheter was removed; the bladder was distended with approximately 350 cc of normal saline. A 17 [place] 30 cystoscope was introduced through the urethra and a survey of the bladder anatomy was completed. The trigone, and the dome of the bladder appeared normal, both ureteral orifices appeared normal and were efluxing urine freely. The urethra appeared normal. A Mena catheter was reinserted. Vaginal packing was inserted to be removed the next morning. Patient emerged from general anesthesia without difficulty, and was taken to recovery room in stable condition. Prior to incision the patient received antibiotics, prior to closure sponge lap and needle counts were correct x2. this was an exceptionally difficult surgical procedure to complete due to the massively enlarged fibroid uterus as well as the relatively difficult limited accessibility and space within the pelvic and abdominal cavity and finally do definitive severely destructive pelvic anatomy as a result of extensive bowel and peritoneal adhesions and endometriosis. Estimated Blood Loss: 50 Blood Replaced: none Sponge/Instrument Count: count correct times 2 Drains: none Complications: none Specimen: myomas, uterus, tubes and left ovary, complex ovarian cyst, endometioma, pelvic wash Discharge & Condition: as per criteria
[2017-08-28] MEDS ORDERED: cefOXitin IV 2 gm in Dextrose 2 GM/50 ML BAG IVPB SCH (15:15)
[2017-08-28] MEDS ORDERED: Sodium Chloride 0.9% 1,000 ML IV SCH (15:15)
[2017-08-28 19:48] VITALS: O2SAT 100
[2017-08-28] MEDS: cefOXitin IV 2 gm in Dextrose 2 GM/50 ML BAG IVPB SCH (20:35)
[2017-08-28] MEDS: Simethicone 80 mg Chewtab PO SCH (22:40)
[2017-08-29 00:19] VITALS: BP 100/60; PULSE 75; RESP 20; TEMP 97.6
[2017-08-29] MEDS: cefOXitin IV 2 gm in Dextrose 2 GM/50 ML BAG IVPB SCH ×2 (04:14→11:53)
[2017-08-29] MEDS: Simethicone 80 mg Chewtab PO SCH ×2 (06:14→14:51)
[2017-08-29 08:42] LABS: MEAN CORPUSCULAR HEMOGLOBIN 25.2 pg (27.0-31.0); MEAN CORPUSCULAR HGB CONC 32.6 g/dL (33.0-37.0); MEAN PLATELET VOLUME 9.6 fL (7.2-11.7); RBC 2.98 Mil/uL (3.80-5.20); RED CELL DISTRIBUTION WIDTH 15.9 % (11.5-14.5); WHITE BLOOD COUNT 6.2 K/uL (4.8-10.8)
[2017-08-29 08:46] LABS: HEMOGLOBIN 7.5 g/dL (11.0-16.0); MEAN CELL VOLUME 77.5 fL (81.0-99.0)
[2017-08-29 09:15] LABS: ALB/GLOB RATIO 1.2 (1.0-2.1); ALBUMIN 2.8 g/dL (3.5-5.0); ALT/SGPT 25 U/L (9-52); AST/SGOT 12 U/L (14-36); BLOOD UREA NITROGEN 6 mg/dL (7-17); CALCIUM 8.1 mg/dl (8.6-10.4); GFR AFRICAN-AMERICAN > 60; GFR NON-AFRICAN AMERICAN > 60
[2017-08-29 13:48] LABS: BASO % 0.4 % (0.0-2.0); EOS % 0.2 % (0.0-4.0); HEMOGLOBIN 8.5 g/dL (11.0-16.0); LYMPH # 0.9 K/uL (1.0-4.3); MEAN CELL VOLUME 77.7 fL (81.0-99.0); MEAN CORPUSCULAR HEMOGLOBIN 24.8 pg (27.0-31.0); MEAN CORPUSCULAR HGB CONC 31.9 g/dL (33.0-37.0); MEAN PLATELET VOLUME 9.6 fL (7.2-11.7); MONO # 0.4 K/uL (0.0-0.8); MONO % 5.3 % (0.0-10.0); NEUT # 6.7 K/uL (1.8-7.0); NEUT % 83.1 % (50.0-75.0); NRBC % 0.1 % (0.0-2.0); RBC 3.43 Mil/uL (3.80-5.20); RED CELL DISTRIBUTION WIDTH 16.7 % (11.5-14.5)
== END 2017-08-29 16:04 | disposition home or self-care (01) | DRG 743 ==
LOC: C.SDS 10:17 → C.4M 14:42
PROVIDERS: ADMIT Obstetrics & Gynecology; ATTEND Obstetrics & Gynecology
PROC: 0UT2FZZ Resection of Bilateral Ovaries, Via Natural or Artificial Opening With Percutaneous Endoscopic Assistance (ICD-10-PCS; 2017-08-28)
PROC: 0UT7FZZ Resection of Bilateral Fallopian Tubes, Via Natural or Artificial Opening With Percutaneous Endoscopic Assistance (ICD-10-PCS; 2017-08-28)
PROC: 0UT9FZZ Resection of Uterus, Via Natural or Artificial Opening With Percutaneous Endoscopic Assistance (ICD-10-PCS; principal; 2017-08-28 13:00)
PROC: 0DNW4ZZ Release Peritoneum, Percutaneous Endoscopic Approach (ICD-10-PCS; 2017-08-28 13:00)
DX: D25.1 Intramural leiomyoma of uterus (principal); G89.29 Other chronic pain; D64.9 Anemia, unspecified; K66.0 Peritoneal adhesions (postprocedural) (postinfection); N81.4 Uterovaginal prolapse, unspecified